=== PATIENT | male | born 1980 | race Caucasian/White ===

== ENCOUNTER 2020-12-05 08:52 | Day surgery (SDC) | payer OTHER ==
[2020-12-05] MEDS ORDERED: NITROGLYCERIN 0.4 MG TAB SUBL SL SCH (10:00)
[2020-12-05] MEDS ORDERED: METOPROLOL TARTRATE 50 MG TAB PO ONE (10:00)
[2020-12-05] MEDS ORDERED: METOPROLOL TARTRATE 5 MG/5 ML INJ IV ONE (10:21)
[2020-12-05] MEDS ORDERED: ATROPINE 0.1% (1 MG/10 ML) CARDIAC SYRINGE ONE (10:27)
[2020-12-05] MEDS ORDERED: METOPROLOL TARTRATE 5 MG/5 ML INJ IV SCH (12:00)
[2020-12-05 12:07] VITALS: BP 131/77
--- NOTE | 2020-12-05 13:39 | Cat Scan Report ---
The following report is a radiology over-read of a CT calcium scoring study. CT calcium scoring study is reported separately by Cardiology. CT CALCIUM SCORING OVER-READ TECHNIQUE: Limited CT through the heart and lung bases. All CT scans at this location are performed u sing CT dose reduction for ALARA by means of automated exposure control. COMPARISON: None available. FINDINGS: VISUALIZED LUNGS / PLEURA: No significant abnormality. SOFT TISSUES: No significant abnormality. SKELETAL SYSTEM: No significant abnormality. ADDITIONAL FINDINGS: No significant additional abnormality. IMPRESSION: 1. No significant extracardiac abnormality. Signer Name: Anupam Rapp MD Signed: 12/05/2020 1:35 PM Workstation Name: [id number]
== END 2020-12-05 13:10 | disposition home or self-care (01) ==
LOC: CATHLABREC 08:52 → EDSTATUS 09:45 → CATHLABREC 13:10
PROVIDERS: ATTEND Internal Medicine
DX: R07.89 Other chest pain (principal); Z87.891 Personal history of nicotine dependence; Z79.84 Long term (current) use of oral hypoglycemic drugs; Z79.899 Other long term (current) drug therapy; Z98.890 Other specified postprocedural states
CPT/HCPCS: 75574; 82962; Q9967; J0461